=== PATIENT | male | born 1990 | race Caucasian/White ===

== ENCOUNTER 2020-07-11 22:12 | Emergency (ER) | payer MEDICAID, SELFPAY ==
[~2020-07-11] VITALS: Ht 193 cm; Wt 83.9 kg
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
[2020-07-11 23:11] LABS: BASOPHILS # (AUTO) 0.1 /CMM (0.0-0.2); BASOPHILS % (AUTO) 0.7 % (0.0-2.0); EOSINOPHILS % (AUTO) 0.7 % (0.0-6.0); HEMATOCRIT 47 % (39-51); HEMOGLOBIN 16.3 g/dL (13.5-17.5); LYMPHOCYTES # (AUTO) 2.1 /CMM (0.8-4.8); LYMPHOCYTES % (AUTO) 23.3 % (20.0-44.0); MEAN CORPUSCULAR HGB CONC 35 g/dl (31.0-36.0); MEAN CORPUSCULAR VOLUME 92 fL (80-96); MONOCYTES # (AUTO) 0.9 /CMM (0.1-1.30); MONOCYTES % (AUTO) 10.4 % (2.0-12.0); NEUTROPHILS # (AUTO) 5.9 /CMM (1.8-8.9); NEUTROPHILS % (AUTO) 64.9 % (43.0-81.0); PLATELET COUNT (AUTO) 275 /CMM (150-450); RED BLOOD CELL COUNT(AUTO) 5.13 MIL/uL (4.5-6.0)
[2020-07-11 23:11] LABS: APPEARANCE,URINE CLEAR (CLEAR); BILIRUBIN,URINE NEGATIVE (NEGATIVE); BLOOD, URINE NEGATIVE Ery/uL (NEGATIVE); COLOR,URINE YELLOW (YELLOW); KETONES,URINE NEGATIVE (NEGATIVE); LEUKOCYTE ESTERASE ,URINE NEGATIVE (NEGATIVE); NITRITE, URINE NEGATIVE (NEGATIVE); PH,URINE 5.5 (5.0-8.0); PROTEIN,URINE TRACE mg/dl (NEGATIVE); UGLUCOSE NEGATIVE (NEGATIVE)
[2020-07-11 23:27] LABS: CALCIUM, SERUM 9.2 mg/dL (8.5-10.1); CARBON DIOXIDE 30 mmol/L (21-32); CHLORIDE 100 mmol/L (98-107); CREATININE 1.1 mg/dL (0.6-1.3); GLUCOSE 80 mg/dL (74-106); POTASSIUM 3.7 mmol/L (3.5-5.1); SODIUM SERUM 138 mmol/L (136-145); UREA NITROGEN, BLOOD 13 mg/dL (7-18)
[2020-07-11 23:33] LABS: ACETAMINOPHEN < 2 ug/ml (10-30); ALANINE AMINOTRANSFERASE 367 U/L (12-78); ALBUMIN 4.7 g/dL (3.4-5.0); ALCOHOL, BLOOD < 3 mg/dL (0-0); ALKALINE PHOSPHATASE 81 U/L (46-116); ASPARTATE AMINOTRANSFERASE 153 U/L (15-37); BILIRUBIN,DIRECT 0.2 mg/dL (0.0-0.2); BILIRUBIN,TOTAL 0.6 mg/dL (0.2-1.0)
--- NOTE | 2020-07-11 23:39 | NUR ---
INCIDENT REPORTED TO [facility] DEPARTMENT. PT ON THE PHONE W/ [facility] DEPT
[2020-07-12 00:49] LABS: BACTERIA,URINE None seen /HPF (None Seen); MUCUS,URINE Few /LPF (None Seen); RBC,URINE 0-2 /HPF (0-2); SQUAMOUS EPITHELIAL CELL,UR Few /HPF (None Seen); WBC,URINE 0-2 /HPF (0-3)
--- NOTE | 2020-07-12 02:25 | NUR ---
CALL FROM LAB. RAPID COVID NEGATIVE
--- NOTE | 2020-07-12 02:48 | NUR ---
PT RESTING IN BED COMFORTABLY. VSS.
--- NOTE | 2020-07-12 04:15 | NUR ---
PT ASLEEP, VSS. PROVIDED WITH MORE BLANKETS.
--- NOTE | 2020-07-12 06:06 | NUR ---
PT ASLEEP,. VSS.
--- NOTE | 2020-07-12 10:47 | NUR ---
Admitting to qualify this patient for presumptive medical for transfer to [facility].
--- NOTE | 2020-07-12 10:50 | NUR ---
SW to fax clinicals over to [facility]. Pending presumptive medical.
--- NOTE | 2020-07-12 11:30 | NUR ---
PATIENT PROVIDED FOOD TRAY. PATIENT A/OX4, BREATHING EVEN AND UNLABORED, NO SOB NOTED.
--- NOTE | 2020-07-12 12:35 | NUR ---
Patient qualified for presumptive medical. [place] faxed clinicals to [facility].
--- NOTE | 2020-07-12 14:19 | NUR ---
SPOKE WITH MARVIN AT [facility] [phone] PT WILL BE GOING TO [place] AND WILL CALL US WHEN THEY HAVE A BED.
--- NOTE | 2020-07-12 14:23 | NUR ---
Patient has been admitted to [facility] room 203-A as patient needs a wheelchair room.
--- NOTE | 2020-07-12 14:38 | NUR ---
SW provided [place] with [place] [facility] [address] [facility] [place] [address] for case management follow-up.
--- NOTE | 2020-07-12 15:47 | NUR ---
Patient has been admitted to [facility] room 203-A as patient needs a wheelchair SEE GIPSY NOTES.
--- NOTE | 2020-07-12 15:50 | NUR ---
CALLED TRANSPORT ETA [phone] PER NARESH
--- NOTE | 2020-07-12 18:18 | NUR ---
REPORT GIVEN TO JOSE ESCOBAR OF [facility] [phone] EXT [phone], FAXED COVID RESULT TO [phone]. WILL INSTRUCT AMBUL[facility]. PATIENT WILL GO TO ROOM 617-A
[2020-07-12 18:57] VITALS: BP 129/78
--- NOTE | 2020-07-12 19:04 | NUR ---
PATIENT PICKED UP BY [facility] [address] IN STABLE CONDITION, [facility] CLINICALS PROVIDED TO EMS TO BE GIVEN TO THE FACILITY.
== END 2020-07-12 19:08 ==
LOC: ER 22:12
DX: R45.851 Suicidal ideations (principal); S92.001A Unspecified fracture of right calcaneus, initial encounter for closed fracture; W19.XXXA Unspecified fall, initial encounter; Y92.89 Other specified places as the place of occurrence of the external cause; I48.91 Unspecified atrial fibrillation; Z20.828 Contact with and (suspected) exposure to other viral communicable diseases
CPT/HCPCS: 29515; 36415; 73630; 80048; 80076; 80299; 80307 ×2; 80320; 81001; 85025; 87426; 99285; C9803; 81000-TC; G0480